=== PATIENT | female | born 1985 | race Caucasian/White ===

== ENCOUNTER 2018-07-23 06:53 | Day surgery (SDC) | payer OTHER, SELFPAY ==
--- NOTE | 2018-07-22 17:06 | PCM.HP.BLA ---
History and Physical Date of Admission: 07/23/18 Surgical History and Physical Molly Anderson, a 33 year old female 0 0 1 0 0, presents for Suction D and E on June at 8:30. -- Blighted Ovum; Threatened Miscarriage -- Denies any vaginal bleeding or cramping. 7 weeks gestation with blighted ovum. Molly presents here today for follow-up for ultrasound done today in our Office. 33 y.o. G 2 P 0 non-smoker with LMP of 05-22-18 and denies spotting/cramping thus far with history of a blighted ovum. Additional comments are: quant about 21,000 and no FHTs noted on u/s yesterday and day before; in hospital for [place] for 4 days at [place]. MEDICATIONS HISTORY: Patient is also takin. clindamycin HCl 150 mg capsule, three po qid 2. folic acid 1 mg tablet, One pill by mouth once a day ALLERGIES: No Known Allergies Infections - Chicken pox Illnesses - [place],Anxiety Accidents - None Hospitalizations - see surgery Review of Systems: GENERAL - Denies fever, or chills SKIN - Denies skin changes EYES - Denies visual changes EARS - Denies difficulty hearing NOSE - Denies nasal congestion or bleeding MOUTH - Denies sore throat or difficulty swallowing NECK - Denies pain or swelling RESPIRATORY - Denies shortness of breath or wheezing CARDIOVASCULAR - Denies palpitations or chest pain GASTROINTESTINAL - Denies nausea, vomiting, diarrhea, constipation GENITOURINARY - Denies dysuria, frequency of urination, incontinence of urine MUSCULOSKELETAL - Denies joint or muscle pain NEUROLOGICAL - Denies localized numbness or weakness PSYCHIATRIC - Denies depression or anxiety ENDOCRINE - Denies heat or cold intolerance, weight loss or gain HEMATO-IMMUNOLOGIC - Denies excesive bleeding with cuts SOCIAL HISTORY: Alcohol Use - socially Smoking - used to smoke but quit and 2017 Diet - no special diet Lifestyle - moderate stress lifestyle and Exercise - active Seat Belt Use - always 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 2010 Bilateral Breast Reduction PHYSICAL EXAM BP- 126/78 Sitting, Right arm, regular cuff Weight- 188.65100 lbs Height- 63 inch BMI:33.37 CONSTITUTIONAL - NAD, well nourished, and well developed SKIN - No rash, lesions, or ulcers HEENT - Normocephalic, PERRLA, EOMI NECK - No nodes, no nuchal rigidity and thyroid normal size and texture LYMPH NODES - Palpation of lymph nodes in neck and groins within normal limits LUNGS - CTA x2 without wheezes, crackles or rales CARDIAC - Regular rate and rhythm without rubs, murmurs, or gallops ABDOMEN - Without hepatosplenomegaly, distention, masses, rebound, or guarding; normal bowel sounds; no hernias EXTREMITIES - No edema or calf tenderness NEUROLOGICAL - Cranial nerves II-XII grossly intact PSYCHIATRIC - A and O to time, place, person, mood and affect ASSESSMENT/PLAN: 1. Threatened , Antepartum Condition Or Complication Blighted ovum and inevitable miscarriage. Discussed MC at length. Discussed options and wants to proceed with Suction D and E. Discussed RBAs and all questions answered.
--- NOTE | 2018-07-22 17:09 | HP.PCM_ITS ---
History and Physical Date of Admission: 07/23/18 Surgical History and Physical Molly Anderson, a 33 year old female 0 0 1 0 0, presents for Suction D and E on June at 8:30. -- Blighted Ovum; Threatened Miscarriage -- Denies any vaginal bleeding or cramping. 7 weeks gestation with blighted ovum. Molly presents here today for follow-up for ultrasound done today in our Office. 33 y.o. G 2 P 0 non-smoker with LMP of 05-22-18 and denies spotting/cramping thus far with history of a blighted ovum. Additional comments are: quant about 21,000 and no FHTs noted on u/s yesterday and day before; in hospital for [place] for 4 days at [place]. MEDICATIONS HISTORY: Patient is also takin. clindamycin HCl 150 mg capsule, three po qid 2. folic acid 1 mg tablet, One pill by mouth once a day ALLERGIES: No Known Allergies Infections - Chicken pox Illnesses - Day,Anxiety Accidents - None Hospitalizations - see surgery Review of Systems: GENERAL - Denies fever, or chills SKIN - Denies skin changes EYES - Denies visual changes EARS - Denies difficulty hearing NOSE - Denies nasal congestion or bleeding MOUTH - Denies sore throat or difficulty swallowing NECK - Denies pain or swelling RESPIRATORY - Denies shortness of breath or wheezing CARDIOVASCULAR - Denies palpitations or chest pain GASTROINTESTINAL - Denies nausea, vomiting, diarrhea, constipation GENITOURINARY - Denies dysuria, frequency of urination, incontinence of urine MUSCULOSKELETAL - Denies joint or muscle pain NEUROLOGICAL - Denies localized numbness or weakness PSYCHIATRIC - Denies depression or anxiety ENDOCRINE - Denies heat or cold intolerance, weight loss or gain HEMATO-IMMUNOLOGIC - Denies excesive bleeding with cuts SOCIAL HISTORY: Alcohol Use - socially Smoking - used to smoke but quit and 2017 Diet - no special diet Lifestyle - moderate stress lifestyle and Exercise - active Seat Belt Use - always 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 2010 Bilateral Breast Reduction PHYSICAL EXAM BP- 126/78 Sitting, Right arm, regular cuff Weight- 188.23363 lbs Height- 63 inch BMI:33.37 CONSTITUTIONAL - NAD, well nourished, and well developed SKIN - No rash, lesions, or ulcers HEENT - Normocephalic, PERRLA, EOMI NECK - No nodes, no nuchal rigidity and thyroid normal size and texture LYMPH NODES - Palpation of lymph nodes in neck and groins within normal limits LUNGS - CTA x2 without wheezes, crackles or rales CARDIAC - Regular rate and rhythm without rubs, murmurs, or gallops ABDOMEN - Without hepatosplenomegaly, distention, masses, rebound, or guarding; normal bowel sounds; no hernias EXTREMITIES - No edema or calf tenderness NEUROLOGICAL - Cranial nerves II-XII grossly intact PSYCHIATRIC - A and O to time, place, person, mood and affect ASSESSMENT/PLAN: 1. Threatened , Antepartum Condition Or Complication Blighted ovum and inevitable miscarriage. Discussed MC at length. Discussed options and wants to proceed with Suction D and E. Discussed RBAs and all questions answered.
[2018-07-23 07:23] VITALS: BP 113/58; PULSE 88; RESP 16; TEMP 37.6; O2SAT 99; BMI 32.8
[2018-07-23] MEDS: Lubricating Jelly 60 GM Tube 30 GM TOPICAL (08:24)
--- NOTE | 2018-07-23 08:30 | POC_PTH ---
PATIENT: FREDI LR LOC: [facility] [place] [facility] [place] U[place][id number] AGE/SX: 33/F ROOM: RE07/23/[address]: Dr. Murali Quintanilla MD : 1985 BED: DIS: 07/23/2018 SPEC #: [id number] RECD: 07/23/18 10:39 STATUS: CHELSEA REAntonietta #: [id number] NANCY: 07/23/18 08:[address]: Murali Quintanilla DEPT: SURGICAL PATHOLOGY RECD BY: William Aguilar ENTERED: 07/23/18 11:33 SP TYPE: PROD CONC OTHR DR: Margaret Castro, FIELD OPERATOR-C Tissues: Product of conception, NOS Procedures: Surgery Specimen Level IV HEADER OPERATION: Dilation and curettage, suction PRE-OP DIAGNOSIS: Blighted ovum and inevitable miscarriage TISSUE SUBMITTED: Products of conception MICROSCOPIC DIAGNOSIS Products of conception: [place], gestational endometrium and immature chorionic villi (products of conception). See comment. SJ:melissa 07/24/18 COMMENT A few of the villi show focal hydropic changes. Significant trophoblastic hyperplasia is not seen. Clinical correlation and appropriate follow up are necessary. MICROSCOPIC DESCRIPTION Slides are reviewed. GROSS DESCRIPTION Received in fixative is one container labeled with the patient's name and designated products of conception. The specimen consists of multiple pieces of timmons-pink soft tissue that in aggregate measure 6 x 5 x 1.5 cm. One of the pieces consist of a cystic structure that may represent gestational sac. No tissue is identified. Branch Office Administrator tissue is submitted in two cassettes. / FORTINO:melissa 07/23/18 TC:5 CPT:
--- NOTE | 2018-07-23 08:43 | PCM.OP.BLANK ---
Operative Report Date of Procedure: 07/23/18 Pre/Post-op: Incomplete Miscarriage, Blighted Ovum Surgeon: Murali Quintanilla MD, FACOG Anesthesia: Irina Riley CRNA; Keith Quintanilla MD Type of anesthesia: MAC Procedure: Suction Dilation and Evacuation Findings: 10 cm EM cavity with POC Indication: 33 Year patient with blighted ovum at 7-8 weeks gestation. Pt has been counseled re RBAs and all questions answered. Procedure: Pt taken to the OR where she was given IV sedation. The patient was prepped and draped in the usual sterile fashion. Anterior cervix grasped and cervix dilated to 8mm. An 8 mm suction curette was inserted into the cervix and all contents removed. Uterus was gently curetted and remaining tissue removed. Pt tolerated the procedure well and was taken to the recovery room in satisfactory condition. Sponge, instruments and needle counts were all correct. There were no apparent complications of the surgery. To Pathology: POC EBL Minimal.
--- NOTE | 2018-07-23 08:46 | DCINST_ITS ---
Discharge Diet: No Restrictions Discharge Activity: Return to Normal Activity, May Shower, May Take a Tub Bath May resume sexual activity in: 2 weeks Call your doctor if you observe: Fever of 101 or Higher, Inability to urinate, Inability to have a bowel movement, Using more than one pad per hour Allergies/Adverse Reactions: Allergies No Known Allergies Allergy (Verified 07/22/18 09:35) Medications to take at Discharge NK 07/22/18 Primary Care Physician: Margaret Castro NP-C [Primary Care Provider] - Test Results: Test results from this visit will be discussed in further detail at your follow- up appointment, if applicable. Please Follow Up With: Murali Quintanilla MD When: 2-3 weeks
[2018-07-23 09:15] VITALS: BP 107/65; BP 113/58; PULSE 87; RESP 16; TEMP 37; O2SAT 94
[2018-07-23 09:20] VITALS: BP 108/66; BP 113/58; PULSE 85; RESP 16; O2SAT 95
[2018-07-23 09:25] VITALS: BP 105/68; BP 113/58; PULSE 84; RESP 16; O2SAT 94
[2018-07-23 09:30] VITALS: BP 108/67; BP 113/58; PULSE 82; RESP 16; O2SAT 95
[2018-07-23 09:35] VITALS: BP 113/58; BP 113/68; PULSE 81; RESP 16; TEMP 36.8; O2SAT 95
== END 2018-07-23 10:48 | disposition home or self-care (01) ==
LOC: SDC 06:57 → AC 06:57
PROVIDERS: Family Provider Nurse Practitioner Family; PCP Nurse Practitioner Family; Referring Provider Obstetrics & Gynecology; Visit Provider Obstetrics & Gynecology
PROC: (CPT 59812; principal; 2018-07-23 08:15)
DX: O03.4 Incomplete spontaneous abortion without complication (principal); O02.0 Blighted ovum and nonhydatidiform mole; Z3A.01 Less than 8 weeks gestation of pregnancy; Z87.891 Personal history of nicotine dependence
CPT/HCPCS: 01965; 59812; 36415; 86850; 86900; 88305; J7120; J2405

== ENCOUNTER → 2018-11-23 16:05 | Outpatient (CLI) | payer OTHER, SELFPAY ==
[2018-11-23 16:55] LABS: Absolute Lymphocyte Count 2.59 X10^3/ul (0.83-4.51); Absolute Neutrophil Count 3.8 X10^3/uL (2.0-7.7); Basophil# 0.02 X10^3/uL; Basophil% 0.3 % (0-1); Eosinophil# 0.21 X10^3/uL; Eosinophils% 2.9 % (0-5); Hematocrit 38.5 % (37-47); Hemoglobin 12.7 g/dl (12.0-15.0); Lymphocyte # 2.59 X10^3/ul (4.0); Lymphocyte % 35.6 % (19-41); Mean Corpuscular Volume 93.9 fL (81-99); Mean Platelet Vol. 8.1 fl (6.2-12.0); Monocyte# 0.61 X10^3/uL; Monocyte% 8.4 % (0-10); Neutrophil # 3.84 X10^3/uL (2.7-7.7); Neutrophil % 52.7 % (47-70); Platelet Count 391 K/mm3 (150-450); RBC Distribution Width CV 13.2 % (11.6-14.6); RBC Distribution Width SD 45.2 fl (35.1-43.9); White Blood Count 7.3 K/mm3 (4.4-11.0)
[2018-11-23 17:06] LABS: POSITIVE COUNT NO; POSITIVE DIFFERENTIAL NO; POSITIVE MORPHOLOGY NO
[2018-11-23 17:09] LABS: Color, Urine Yellow (Yellow); Glucose, Dipstick Normal (Normal); Ketone-Dipstick Negative (Negative); Leukocyte Esterase-Dipstick Negative /ul (Negative); Nitrite-Dipstick Negative (Negative); Occult Blood-Urine 10 /ul (Negative); Protein-Dipstick Negative (Negative); Urine Bilirubin Dipstick Negative (Negative); Urine Clarity Clear (Clear); Urine Urobilinogen Normal (Normal)
[2018-11-23 17:18] LABS: Thyroid Stim Hormone (TSH) 1.41 uIU/mL (0.358-3.74)
[2018-11-23 18:01] LABS: HIV - WCH Non-Reactive (Nonreactive); Rubella IgG 32.2 IU/mL
[2018-11-23 18:09] LABS: Chlamydia Trachomatis by PCR Negative (Negative); Neisserai gonorrhoeae by PCR Negative (Negative); Probe Check PASS; Sample Adequacy Control PASS; Specimen Processing Control PASS
[2018-11-25 12:21] LABS: HEPATITIS B SURFACE AG Negative (Negative); Hep C Antibodies 0.2 s/co ratio (0.0-0.9)
[2018-11-25 17:12] LABS: HPV Reflexed? NOT INDICATED
[2018-11-27 03:11] LABS: Prenatal RPR NONREACTIVE (NONREACTIVE)
== END ==
PROVIDERS: Visit Provider Obstetrics & Gynecology
DX: Z12.4 Encounter for screening for malignant neoplasm of cervix (principal); Z11.3 Encounter for screening for infections with a predominantly sexual mode of transmission; Z34.81 Encounter for supervision of other normal pregnancy, first trimester
CPT/HCPCS: 36415; 81002; 84443; 85025; 86703; 86762; 86803; 87340; 87491; 87591; 87624; 88175; G0145

== ENCOUNTER → 2019-04-05 15:49 | Outpatient (CLI) | payer OTHER, SELFPAY ==
[2019-04-05 17:14] LABS: Hematocrit 34.2 % (37-47); Hemoglobin 11.4 g/dl (12.0-15.0); Mean Corp Hgb Conc 33.3 g/gl (32-36); Mean Corpuscular Hgb 31.7 pg (27.0-32.0); Mean Platelet Vol. 8.3 fl (6.2-12.0); Platelet Count 371 K/mm3 (150-450); RBC Distribution Width CV 13.1 % (11.6-14.6); RBC Distribution Width SD 45.4 fl (35.1-43.9); White Blood Count 10.7 K/mm3 (4.4-11.0)
[2019-04-05 17:15] LABS: Scan Indicated on CBC? Y/N NO
[2019-04-05 17:20] LABS: Glucose Challenge Gest 1H 50g 139 mg/dL (70-140)
== END ==
PROVIDERS: Visit Provider Obstetrics & Gynecology
DX: Z34.83 Encounter for supervision of other normal pregnancy, third trimester (principal)
CPT/HCPCS: 36415; 82950; 85027

== ENCOUNTER → 2019-06-03 16:47 | Outpatient (CLI) | payer OTHER, SELFPAY | PROVIDERS: Visit Provider Obstetrics & Gynecology | DX: Z36.85 Encounter for antenatal screening for Streptococcus B (principal) | CPT/HCPCS: 87081 ==

== ENCOUNTER 2019-07-02 06:50 | Inpatient (IN) | payer OTHER, SELFPAY ==
[2019-07-02] MEDS: Lactated Ringers 1,000 ML 50 ML IV (07:40)
[2019-07-02 07:53] VITALS: BMI 37.9
[2019-07-02 07:56] LABS: Absolute Neutrophil Count 7.8 X10^3/uL (2.0-7.7); Basophil# 0.02 X10^3/uL; Basophil% 0.2 % (0-1); Eosinophil# 0.16 X10^3/uL; Eosinophils% 1.4 % (0-5); Hematocrit 38.7 % (37-47); Hemoglobin 12.8 g/dL (12.0-15.0); Lymphocyte % 22.8 % (19-41); Mean Corp Hgb Conc 33.1 g/dL (32-36); Mean Corpuscular Hgb 31.1 pg (27.0-32.0); Mean Corpuscular Volume 93.9 fL (81-99); Mean Platelet Vol. 8.4 fl (6.2-12.0); Monocyte# 0.79 X10^3/uL; Monocyte% 6.9 % (0-10); NRBC Flagged by Analyzer 0 % (0-5); Neutrophil % 68.3 % (47-70); Platelet Count 396 K/mm3 (150-450); RBC Distribution Width CV 12.9 % (11.6-14.6); RBC Distribution Width SD 44.7 fl (35.1-43.9); Red Blood Count 4.12 M/mm3 (4.2-5.4); White Blood Count 11.4 K/mm3 (4.4-11.0)
[2019-07-02] MEDS: miSOPROStol 25 MCG TABLET PO ×2 (09:07→13:16)
--- NOTE | 2019-07-02 11:06 | HP.PCM_ITS ---
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 On 07/01/2019 JAMIA was noted to be 3.8cm. with MVP=3.2cm, and patient was scheduled for medically indicated IOL. She is GBS negative; is anticipated to be cared for in the normal nursery. A plan is in place for to be seen by pediatric neurology and also to have an echocardiogram at 1-2 weeks of age. ACOG ANTEPARTUM RECORD - HISTORY AND PHYSICAL (07/02/2019) Name: MOLLY LR OB Physician: CAROL Langley's Physician: JOVANY He................................................................... : 1985 Age: 34 Address: [address] [place] [id number] Phone: (h) [phone] ([phone] Insurance Carrier: [facility] [id number] Emergency Contact: LINDA LR/ [phone] ...................................................................... Final JOSE: 06/26/19 By Ultrasound: PARITY: (G-Total Pregnancies P-Fullterm,Premature,Induced AB,Spont AB, Ectopics, Multiple,Living) JOSE CONFIRMATION: By LMP: 09/19/18 Final JOSE: 06/26/19 BLOOD TYPE: AFP: 1 HR PG: GBS: Original Ordering Provider: Murali Quintanilla Comments: VAGINAL/RECTAL DAGMAR Culture Group B Beta Streptococcus is not isolated. Rublla titer (>10 immune)-- Hepatatis B collins AG-- CULTURES:-- OB PROBLEM LIST: Declines MSAFP, CF Nephew with Level II Autism Placenta: Posterior, velamentous cord insert and 0.7 cm from edge--- check u/s for growth 28-32 wks and NST weekly starting 36 wks Unilateral ventriculomegaly per MFM; pt declined amnio; avoid operative vaginal delivery; head u/s wtihin 1 month of delivery per peds Vilamentous insertion; slightly dilated ventricles--refer MFM ALLERGIES: No Known Allergies MEDICATIONS: 28 mg iron-800 mcg tablet One pill by mouth once a day SOCIAL HISTORY: Smoking - used to smoke but quit and 2017 Alcohol Use - socially Diet - no special diet Lifestyle - moderate stress lifestyle and Exercise - active 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 HISTORY DEL DATE GEST LAB WT LB WT OZ TYPE ANES LABOR TX Apr 15 7 0 0 0 Sab Epidural No 25 Jul 16 9 0 0 0 Sab Epidural No ANTEPARTUM FLOW CHART VISIT GE RTC FU F F AZ U U DATE WK MD WKS HT PN HR M SS BP ED WT AZ GL D EF ST __ ____ ___ __ __ ___ __ __ __ ___ __ __ __ ___ __ 03 Jun JMW 6 38 V + + 128/84 sl 214 - - 2+ 50 -2 30 May 40 ELB 1 - V + + 124/80 sl 214 tr - 1 50 hi 23 May 39 JMW 1 38 V + + 130/76 sl 213 tr 2+ S 16 May 38 JMW 1 38 V U+ + 124/76 sl 211 - - 1 50 -3 09 Sep 37 ELB 1 37 V + + 112/78 sl 210 - 1+ 05 Sep 36 JMW 1 36 V + + 124/78 sl 211 - tr 1 50 -2 Apr 35 JMW 1 35 + + 134/86 sl 206 tr - 12 Apr ELB 2 33 - + + 130/76 sl 206 tr - Apr 28 JMW 2 31 + + 138/80 sl 202 tr - 08 Apr 25 JMW 3 28 + + 138/90 0 198 - - 03 Mar 21 JMW 4 23 + + 136/86 sl 193 - - February 14 ELB 4 - B U+ + 132/82 0 188 - - Dec 09 JMW 6 + O 118/68 0 183 tr - ANTEPARTUM NOTE(S): Jul 01 2019: NST. PNV. Feels good., Induce, Oligo 3.8 cm Jun 28 2019: Jun 21 2019: Good FM Jun 14 2019: NST Today,Good FM, Feeling Well Jun 07 2019: Ate [employer] for lunch just before NST Jun 03 2019: Feels well. NST today. May 24 2019: Good FM,Feeling Well May 10 2019: reviewed FM, PTL Apr 26 2019: Sono Today,Good FM,Feeling Well, refer MFM Apr 05 2019: feeling well. Glucola drawn. Mar 01 2019: glucola inst provided and reviewed, patient doing well February 01 2019: Sono Today,Good FM, Feeling Well Dec 22 2018: NOB & PNV, Declines AFP COMPREHENSIVE ANTEPARTUM NOTE(S): Jul 01 2019: Molly is here for her NST at 40 w 5 d. She states that she is feeling well, and reports good FM. Denies spotting/leaking fluid, and states that she feels only BH ctx's. Slight edema noted below knees. NST reactive, read per Dr. Quintanilla. AW Jun 28 2019: Molly is here for visit after NST at 40.2 w gest. Feeling well. Ready for induction. Occ contr only but more BH. Glucose negative today. Baby active. Tops of feet puffy. Lower legs only slight edema. DR. Jun 21 2019: Molly is here for NST and visit. Ready for labor and baby. Occ contr at home. Baby active. Sl edema lower legs today but reports more at times. Urine glucose 2+. Lunch at 1:15 p was [employer] beef/cheddar sandwich, gurpreet sticks and 1/2 of orange pop. Office Childbirth Class taken. DR. Jun 14 2019: Feeling well; reports active FM; denies UCs, VB, LOF; Reactive NST; VE per patient request /-3, soft, posterior; discussed warning signs, s/s Labor, when to call/come in; RTO 1 week for PNV - KVW Jun 11 2019: H taken to OB. tkg Jun 07 2019: Molly is here at 37 w 2 d for her NST. She states that she feels pretty good. Reports good FM. Denies spotting/leaking fluid. Feels irregular BH ctx's. Slight edema noted below knees. NST reactive, read per Dr. Cross. AW Jun 03 2019: Molly is here for her NST for Velamentous cord insertion at 36 w 5 d. EEFM/NST explained. She states that she is feeling well. Good FM reported. She denies spotting/cramping. Slight edema noted below knees. NST reactive, read per Dr. Quintanilla. AW May 24 2019: Feeling well; reports active FM; VB, LOF, KAN, RUQ pain; appointment pending with MFM for cardiac US; discussed warning signs, s/s PTL; RTO 1 week for PNV, NST May 10 2019: Here for visit. Doing well, no complaints. Plans repeat u/s this with MFM. Reviewed FM, PTL. LMT May 10 2019: MFM appt scheduled for to f/u on ventricles and placenta. EB Dec 22 2018: Molly presents here today for NOB and PNV. 33 y.o. G 3 P 0 (AB 1, Blighted Ovum 1) previous smoker (quit in 2016) and reports continues with periodic nausea and fatigue. 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 Plans to deliver at [facility] with Dr. Navarro as Philosophy And Religion Instructor and undecided regarding an epidural. Reports her nephew has Level II Autism and denied other genetic or concerns family history. Reviewed good nutrition and healthy snacks with ideal weight gain of 20-25 lbs(dietary handout given) and encouraged good hydration with 1-2 gallons of water/fluids daily with benefits of same given as well as she plans to breastfeed. Detailed review of major body changes in breasts, digestion and abdomen. Discussed common discomforts in with helpful hints for each with handout given( diarrhea, constipation, hemorrhoids, urinary frequency, low back pains, round ligament pains, varicose veins, difficulty breathing, headaches, fatigue, insomnia, heartburn, numbness and tingling in fingers/toes, intercourse during , Donaldo Muñiz and excess production of vaginal discharge). Reviewed emotional changes from first to third trimester with ways to relax. No house cats and had chickenpox as a child. Genetic screening form filled out and declines MSAFP, CF testing with consent form signed. labs were drawn at last visit and reviewed same today. Birthing Classes encouraged. JAZLYN Nov 23 2018: PT is a 33 yo female, G-3 P-0 here today for her missed menses appt. PT LMP was 09/19/2018 giving her an EDC of 06/26/2019 and making her approx. 9.2 wks GA today. PT denies any bleeding, spotting, or cramping. PT is taking a PNV. PT is anxious due to previous two miscarriages and would like to have an ultrasound today if possible. New paperwork given to pt. PT to have pap and GC/CT today. dg Nov 23 2019: ok Aug 04 2018: Molly presents here today for 2 week post-op check from Suction D and E on 07-23-18 with JW at [facility]. 33 y.o. 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 Medication list up- dated. JAZLYN Aug 04 2018: Doing well. Return 6 months for annual exam. Jul 20 2018: Molly presents here today for follow-up for ultrasound done today in our Office. 33 y.o. G 2 P 0 non-smoker with LMP of 05-22-18 and denies spotting/cramping thus far with history of a blighted ovum. Medication list up-dated. JAZLYN Jul 20 2018: ok Jul 13 2018: Molly presents here today as follow-up from being admitted in [place] from 07-10-18 to 07-12-18 for [place] and was told possible Blighted Ovum. 33 y.o. G 2 P 0 previous smoker (quit in 08/2017) with history of regular menses and LMP of 05-23-18. Had blood work and Ultrasound over the week-end with both copied and attached. Reports feeling better and denies bleeding/cramping thus far in . Medications listed. JAZLYN Jul 13 2018: Denies any vaginal bleeding or cramping. REVIEW OF SYSTEMS: GENERAL - Denies fever, or chills SKIN - Denies rash, new skin lesions, or change in moles EYES - Denies blurred vision, or change in visual acuity EARS - Denies ear pain, or difficulty hearing NOSE - Denies nasal congestion, discharge, or bleeding MOUTH - Denies sore throat, or difficulty swallowing NECK - Denies pain or swelling RESPIRATORY - Denies shortness of breath, cough, wheezing CARDIOVASCULAR - Denies palpitations, chest pain, orthopnea, PND, peripheral edema, syncope or claudication GASTROINTESTINAL - Denies nausea, vomiting, diarrhea, constipation, Denies abdominal pain, melena and or bright red blood GENITOURINARY - Denies dysuria, frequency of urination, urgency, or hesitancy MUSCULOSKELETAL - Denies joint or muscle pain, or back pain NEUROLOGICAL - Denies localized numbness, weakness, or tingling PSYCHIATRIC - Denies depression, anxiety, substance abuse or suicide attempts ENDOCRINE - Denies heat or cold intolerance, weight loss or gain, increasing thirst HEMATO-IMMUNOLOGIC - Denies easy bruising, bleeding, oral ulcerations or recurrent infections GENETICS SCREENING: Age 35+ years: No Thalassemia: No Neural Tube Defect: No Down Syndrome: No JOSE LUIS-SACHS: No Sickle Cell Disease: No Hemophilia: No Musc. Dystrophy: No Cystic Fibrosis: No-declines screening Edwardo Chorea: No Mental Retardation: No Fragile X: No Other genetic: No Other defects: No SABs/still births: No Drugs since LMP: No INFECTION HISTORY: High risk AIDS: No High risk Hepatitis: No Exposed to TB: No Exposed to Herpes: No Rash/viral illness since LMP: No History of STD: No MENSTRUAL HISTORY: *Menses Amount/Duration: normal amount, spottingMenses Regularity: RegularFrequency: monthlyMenarche (Age Onset): 14* PAST SUMMARY: PARITY: 1. Total Pregnancies............ 3 2. Full Term Pregnancies........ 0 3. Premature.................... 0 4. Abortions - Induced.......... 0 5. Abortions - Spontaneous...... 2 6. Ectopics..................... 0 7. Multiple Births.............. 0 8. Living Children.............. 0 PAST #1: Date of :.................. 04/04/18 Gestation Weeks:................ 7 Length of labor(hours):......... 0 Sex:............................ Weight-lbs:............... 0 Weight-oz:................ 0 Type of Delivery:............... Sab Type of Anesthesia:............. Epidural Place of Delivery:.............. [place] Treatment of Labor?:.... No Comment: PAST #2: Date of :.................. 07/23/18 Gestation Weeks:................ 9 Length of labor(hours):......... 0 Sex:............................ Weight-lbs:............... 0 Weight-oz:................ 0 Type of Delivery:............... Sab Type of Anesthesia:............. Epidural Place of Delivery:.............. [place] Treatment of Labor?:.... 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 Yajaira Marquez Misoprostol cervical ripening followed by pitocin IOL Continuous EFM Anticipate vaginal delivery
[2019-07-02] MEDS: Oxytocin 30 units/NS 500 ml 30 UNITS/500 ML IV.SOLN IV (17:16)
--- NOTE | 2019-07-02 17:30 | PCM.PN.BLA ---
Progress Note LABOR PROGRESS NOTE Molly reports mild contractions. Denies headache, vision changes, shortness of breath or RUQP. She feels well. BP 144/73, 154/87 P 99 VSS GEN - NAD, AAO x 3 FHR 145, moderate variability, + accelerations, no decelerations TOCO 2-3/10 min SVE 2-3/40/-1 per last RN exam by Walter Thacker. A/P: 34yo @ 40 6/7wga, IOL, s/p cytotec x 2, Cat I FHR -Continue to monitor BPs. Will send preeclamptic labs if elevation persists. -Start pitocin -Maternal and statuses reassuring
[2019-07-02 22:05] LABS: Hematocrit 38.1 % (37-47); Hemoglobin 12.7 g/dL (12.0-15.0); Mean Corp Hgb Conc 33.3 g/dL (32-36); Mean Corpuscular Hgb 31.8 pg (27.0-32.0); Mean Corpuscular Volume 95.3 fL (81-99); Mean Platelet Vol. 8.3 fl (6.2-12.0); Platelet Count 374 K/mm3 (150-450); RBC Distribution Width SD 45.3 fl (35.1-43.9); White Blood Count 11.7 K/mm3 (4.4-11.0)
[2019-07-02 22:31] LABS: ALB/GLOB Ratio 0.6 RATIO (0.9-2.4); AST(SGOT) 11 U/L (15-37); Alanine Aminotransfer ALT/SGPT 16 U/L (13-56); Albumin, Serum 2.4 g/dL (3.2-5.0); Alkaline Phosphatase 95 U/L (45-117); Anion Gap 9 (5-15); BUN 10 mg/dL (7-18); BUN/Creat Ratio 16.3 RATIO (10-20); Calcium,Total 8.7 mg/dL (8.5-10.1); Chloride 107 mmol/L (98-107); Creatinine, Serum 0.61 mg/dL (0.55-1.02); EST Glomerular Filtration Rate 120 mL/min (>60); Est Glom Filt Rate - Afr Amer 145 mL/min (>60); Estimated Creatinine Clearance 109.52 ml/min; Glucose 79 mg/dL (74-106); LDH 132 U/L (84-246); Protein, Total 6.4 g/dL (6.4-8.2); Sodium Level 138 mmol/L (136-145); Uric Acid 3.3 mg/dL (2.6-6.0)
[2019-07-02] MEDS: Lactated Ringers 500 ML 999 ML IV (22:36)
[2019-07-02] MEDS: fentaNYL-bupivacaine (epidural) 100 ML BAG EPIDURAL (23:59)
--- NOTE | 2019-07-03 00:27 | PN_ITS ---
Progress Note LABOR PROGRESS NOTE Comfortable with epidural. No complaints. AVSS GEN - NAD, AAO x 3 FHR 130, moderate variability, + accelerations, no decelerations TOCO 5/10 min SVE deferred Labs & Testing WBC 11.7 K/mm3 (4.4-11.0) H 07/02/19 21:40 RBC 4.00 M/mm3 (4.2-5.4) L 07/02/19 21:40 Hgb 12.7 g/dL (12.0-15.0) 07/02/19 21:40 Hct 38.1 % (37-47) 07/02/19 21:40 MCV 95.3 fL (81-99) 07/02/19 21:40 MCH 31.8 pg (27.0-32.0) 07/02/19 21:40 MCHC 33.3 g/dL (32-36) 07/02/19 21:40 RDW Std Deviation 45.3 fl (35.1-43.9) H 07/02/19 21:40 RDW Coeff of Ty 13.0 % (11.6-14.6) 07/02/19 21:40 Plt Count 374 K/mm3 (150-450) 07/02/19 21:40 MPV 8.3 fl (6.2-12.0) 07/02/19 21:40 Immature Gran % (Auto) 0.400 % (0.0-0.9) 07/02/19 07:40 Neut % (Auto) 68.3 % (47-70) 07/02/19 07:40 Lymph % (Auto) 22.8 % (19-41) 07/02/19 07:40 Shackelford % (Auto) 6.9 % (0-10) 07/02/19 07:40 Eos % (Auto) 1.4 % (0-5) 07/02/19 07:40 Baso % (Auto) 0.2 % (0-1) 07/02/19 07:40 Absolute Neuts (auto) 7.8 X10^3/uL (2.0-7.7) H 07/02/19 07:40 Absolute Lymphs (auto) 2.60 X10^3/uL (0.83-4.51) 07/02/19 07:40 Nucleated RBC % 0 % (0-5) 07/02/19 07:40 Sodium 138 mmol/L (136-145) 07/02/19 21:40 Potassium 4.0 mmol/L (3.5-5.1) 07/02/19 21:40 Chloride 107 mmol/L (98-107) 07/02/19 21:40 Carbon Dioxide 22.0 mmol/L (21.0-32.0) 07/02/19 21:40 Anion Gap 9 (5-15) 07/02/19 21:40 BUN 10 mg/dL (7-18) 07/02/19 21:40 Creatinine 0.61 mg/dL (0.55-1.02) 07/02/19 21:40 Estim Creat Clear Calc 109.52 ml/min 07/02/19 21:40 Est GFR (MDRD) Af Amer 145 mL/min (>60) 07/02/19 21:40 Est GFR (MDRD) Non-Af 120 mL/min (>60) 07/02/19 21:40 BUN/Creatinine Ratio 16.3 RATIO (10-20) 07/02/19 21:40 Glucose 79 mg/dL (74-106) 07/02/19 21:40 Uric Acid 3.3 mg/dL (2.6-6.0) 07/02/19 21:40 Calcium 8.7 mg/dL (8.5-10.1) 07/02/19 21:40 Total Bilirubin 0.20 mg/dL (0.20-1.00) 07/02/19 21:40 AST 11 U/L (15-37) L 07/02/19 21:40 ALT 16 U/L (13-56) 07/02/19 21:40 Alkaline Phosphatase 95 U/L (45-117) 07/02/19 21:40 Lactate Dehydrogenase 132 U/L (84-246) 07/02/19 21:40 Total Protein 6.4 g/dL (6.4-8.2) 07/02/19 21:40 Albumin 2.4 g/dL (3.2-5.0) L 07/02/19 21:40 Globulin 4.0 g/dL (2.2-4.2) 07/02/19 21:40 Albumin/Globulin Ratio 0.6 RATIO (0.9-2.4) L 07/02/19 21:40 Blood Type A POSITIVE 07/02/19 07:40 Antibody Screen NEGATIVE 07/02/19 07:40 A/P: 34yo @ 41wga, IOL with likely gestational HTN, Cat I FHR -Preeclamptic labs negative -Maternal and statuses reassuring
[2019-07-03] MEDS: Lactated Ringers 1,000 ML 200 ML IV ×3 (02:05→12:50)
[2019-07-03] MEDS: fentaNYL-bupivacaine (epidural) 100 ML BAG EPIDURAL ×3 (04:06→14:33)
[2019-07-03] MEDS: Mag Hydrox/Al Hydrox/Simeth 30 ML UDC PO (04:35)
--- NOTE | 2019-07-03 07:11 | PCM.PN.BLA ---
Progress Note LABOR PROGRESS NOTE Comfortable. Was able to sleep last night. Denies complaints. AVSS, BP 125-131/57-76 FHR 140, minimal variability, + 10 x 10 accelerations, + variable deceleration TOCO 4/10 min SVE 7/75/-1 34yo @ 41wga, IOL with Cat II FHR -Continue pitocin as tolerated by mother and baby -Maternal and statuses reassuring
[2019-07-03] MEDS: 0.9% Saline Lock 10 ML Syringe IV ×2 (07:45→21:40)
--- NOTE | 2019-07-03 13:21 | PCM.PN.BLA ---
Progress Note LABOR PROGRESS NOTE No complaints. AVSS GEN - NAD, AAO x 3 FHR 150, moderate variability, no accelerations, no decelerations TOCO 4/10 min SVE 9/90/-1 (most of cervix at maternal left), CEPHALIC A/P: 34yo @ 41wga, IOL, Cat I FHR -Patient repositioned, will continue pitocin as tolerated by mother and fetus -Maternal and statuses reassuring
[2019-07-03] MEDS: Oxytocin 30 units/NS 500 ml 30 UNITS/500 ML IV.SOLN 334 UNITS IV (17:15)
[2019-07-03] MEDS: Methylergonovine 0.2 MG/ML Ampul IM (17:50)
[2019-07-03] MEDS: Acetaminophen 500 MG Tablet 1000 MG PO (19:28)
--- NOTE | 2019-07-03 20:12 | PCM.OPRPT ---
Problem List (1) 41 weeks gestation of Status: Acute (2) Meconium in amniotic fluid Status: Acute (3) (spontaneous vaginal delivery) Status: Acute (4) Maternal fever during labor Status: Acute (5) Gestational hypertension Status: Acute Qualifiers: Trimester: third trimester Qualified Code(s): O13.3 - Gestational [-induced] hypertension without significant proteinuria, third trimester Vaginal Delivery Maternal Presentation: Medically Indicated Induction Method of Induction: Pitocin, Amniotomy, Cytotec Medical Reason for Induction: - - Late term Amniotic Membrane Rupture Type: Artificial Rupture of Membrane time: 2100 07/02/19 Amniotic Fluid Description: Thick meconium Final JOSE: 06/26/19 Final JOSE Source: US <20 weeks Gestational age: 41 Weeks and 0 Days [place] doctor who attended delivery (if requested by OB): Cherise Hedrick Date of Procedure: 07/03/19 Pre-Operative Diagnosis: 41wga, gestational hypertension, maternal fever Post-Operative Diagnosis: 41wga, gestational hypertension, maternal fever Surgery/ Procedure Performed: Spontaneous Vaginal Delivery Anesthesiologist: Matty Mars Type of Anesthesia: Epidural Description of Procedure: Patient was FD/+4 station on my arrival. She pushed to deliver a male fetus through thick meconium. The mouth was suctioned at the perineum. The was placed on the maternal abdomen, noted to have poor tone and no significant respiratory effort. The cord was doubly clamped and cut. The was further attended by the nursery personnel and Pediatric Hospitalist. Cord gases were obtained. The placenta was manually extracted after more than 30 minutes . The placenta was extracted and appeared intact on inspection. Intrauterine exam was performed with retrieval of of clots. The uterus remained atonic without hemorrhage, thus vigorous bimanual uterine massage was performed with improvement and IM Methergine was administered. A vaginal laceration was repaired with 3-0 Vicryl Rapide. There was excellent hemostasis. Presentation: Vertex Placental Delivery Description: Spontaneous Placenta Disposition: Sent to Pathology Cord Vessel Description: 3 Vessels Nuchal Cord Compression: Without compression Cord Gases drawn per routine: ABG, VBG Cord Entanglement: None Drain: Sarmiento to straight drain Estimated Blood Loss: 400 Infant A gender: Male (1 minute): 4 (5 minute): 7 - 8 at 10 minutes Episiotomy Description: None Laceration: Midline, Vaginal Extension/lac, 1st degree Medications given after delivery: IV Pitocin, IM Methergin Complications: None
[2019-07-03 20:28] VITALS: BP 128/71; PULSE 110; RESP 18; TEMP 36.9; O2SAT 98
--- NOTE | 2019-07-03 20:45 | NURSING ---
patient pumping. educated on duration, settings, breast care. denies further questions at this time
--- NOTE | 2019-07-03 22:02 | NURSING ---
roberto remains in place d/t perineal swelling and pt unable to get out of bed on own, right side weak/numb
[2019-07-03 23:09] VITALS: BP 131/72; PULSE 91; RESP 18; TEMP 36.5
[2019-07-04] MEDS: Ibuprofen 600 MG Tablet PO ×3 (03:22→22:53)
[2019-07-04 03:30] VITALS: BP 118/78; PULSE 100; RESP 18; TEMP 36.9
[2019-07-04 09:45] VITALS: BP 121/80; PULSE 103; RESP 16; TEMP 36.8; O2SAT 100
[2019-07-04] MEDS: Prenatal Vits Tablet 1 TABLET PO (09:50)
--- NOTE | 2019-07-04 10:16 | PCM.PN.OB ---
Patient Problems: Active and Suspected Problems 41 weeks gestation of (Acute) Meconium in amniotic fluid (Acute) (spontaneous vaginal delivery) (Acute) Maternal fever during labor (Acute) Gestational hypertension (Acute) Subjective: No issues overnight. Denies headache, vision changes, shortness of breath or abdominal pain. Has mild intermittent cramping. No voiding difficulties or heavy lochia. She is pumping, . was transferred to the special care nursery overnight for hypoglycemia. Objective: AVSS - Physical Exam General: Alert, Oriented x3, Cooperative, No apparent distress HEENT: Atraumatic, Normocephalic Lungs: Clear to auscultation, Normal air movement Cardiovascular: Regular rate, Regular Rhythm, Normal S1, Normal S2 Abdomen: Soft, Non Tender, Non-Distended, - - Fundus firm and nontender Extremities: No edema, No Calf Tenderness Neurological: Neuro grossly intact Psych/Mental Status: Normal Affect, Appropriate, Alert and oriented to time, place, person, mood and affect Vital Signs Temp Pulse Resp BP Pulse Ox 98.3 F 103 H 16 121/80 H 100 07/04/19 09:45 07/04/19 09:45 07/04/19 09:45 07/04/19 09:45 07/04/19 09:45 Oxygen Delivery Method Room Air Weight: 97.1 kg Body Mass Index (BMI) 37.9 Intake and Output for Last 24 Hours 07/02/19 07/03/19 07/04/19 23:59 23:59 23:59 Intake Total 1645.07 / 1645.07 4926.57 / 4926.57 Output Total 2350 / 2350 Balance 1645.07 / 1645.07 2576.57 / 2576.57 Medical Necessity - Tobacco Use Smoking Status: Former smoker Assessment/Plan All Active Problems 41 weeks gestation of (Acute) Meconium in amniotic fluid (Acute) (spontaneous vaginal delivery) (Acute) Maternal fever during labor (Acute) Gestational hypertension (Acute) Mom's Problem List Problem Status Onset Code 41 weeks gestation of Acute Z3A.41 Meconium in amniotic fluid Acute P96.83 (spontaneous vaginal delivery) Acute O80 Maternal fever during labor Acute O75.2 Gestational hypertension Acute O13.9 Labs Blood Type: A RH: POSITIVE RPR/VDRL/Syphilis Nonreactive Rubella status Immune HbSAg Negative Date Done: 11/23/18 Chlamydia Negative Gonorrhea Negative HIV/AIDS Non-Reactive Group B Strep: Negative A/P: 34yo PPD#1 s/p doing well. -Rh positive, Rubella immune -Routine care -/pumping
--- NOTE | 2019-07-04 10:21 | DCINST_ITS ---
Discharge Diet: No Restrictions Discharge Activity: Return to Normal Activity, May Shower, May Take a Tub Bath May resume sexual activity in: 6 weeks Lifting Restrictions: 10-20 lb Additional Instructions: If you experience any of the following, contact your healthcare provider. * Bleeding that soaks a pad every hour for 2 hours * Fever 100.4 or higher * Unrelieved incision or abdominal pain * Swelling, redness, discharge or bleeding from your incision or episiotomy site * Your incision begins to separate * Problems urinating (including inability to urinate or burning while urinating). * Visual changes * Severe headache * Flu-like symptoms * Pain or redness in one of both of your breasts * Pain, warmth, tenderness or swelling in your legs, especially the calf area * Frequent nausea and vomiting * Symptoms of depression or anxiety If you experience any of the following, call 911 or go to the nearest Emergency Room. * Chest pain * Problems breathing * Seizure activity * Partial or complete paralysis of a body part, slurred speech, weakness or drooping of the face, or a sudden inability to walk or hold your balance Allergies/Adverse Reactions: Allergies No Known Allergies Allergy (Verified 07/02/19 07:24) Medications to take at Discharge RX: Vits [Prenatabs FA ] 1 tab PO DAILY 07/02/19 RX: Ibuprofen [Motrin] 600 mg PO Q8H PRN #30 tab 07/04/19 The following prescriptions were given: RX: Ibuprofen [Motrin] 600 mg PO Q8H PRN #30 tab PRN Reason: Pain Score 1-10/10 Transmission Status: Pending to [id number] Please Follow Up With: Murali Quintanilla MD - BP check When: 1-2 weeks Please Follow Up With: Murali Quintanilla MD - visit When: 6 weeks Primary Care Physician: Care Physician,No Primary [Primary Care Provider] - Test Results: Test results from this visit will be discussed in further detail at your follow- up appointment, if applicable.
--- NOTE | 2019-07-04 10:21 | PCM.DCVAG ---
Discharge Diet: No Restrictions Discharge Activity: Return to Normal Activity, May Shower, May Take a Tub Bath May resume sexual activity in: 6 weeks Lifting Restrictions: 10-20 lb Additional Instructions: If you experience any of the following, contact your healthcare provider. Bleeding that soaks a pad every hour for 2 hours Fever 100.4 or higher Unrelieved incision or abdominal pain Swelling, redness, discharge or bleeding from your incision or episiotomy site Your incision begins to separate Problems urinating (including inability to urinate or burning while urinating). Visual changes Severe headache Flu-like symptoms Pain or redness in one of both of your breasts Pain, warmth, tenderness or swelling in your legs, especially the calf area Frequent nausea and vomiting Symptoms of depression or anxiety If you experience any of the following, call 911 or go to the nearest Emergency Room. Chest pain Problems breathing Seizure activity Partial or complete paralysis of a body part, slurred speech, weakness or drooping of the face, or a sudden inability to walk or hold your balance Allergies/Adverse Reactions: Allergies No Known Allergies Allergy (Verified 07/02/19 07:24) Medications to take at Discharge RX: Vits [Prenatabs FA ] 1 tab PO DAILY 07/02/19 RX: Ibuprofen [Motrin] 600 mg PO Q8H PRN #30 tab 07/04/19 The following prescriptions were given: RX: Ibuprofen [Motrin] 600 mg PO Q8H PRN #30 tab PRN Reason: Pain Score 1-10/10 Transmission Status: Pending to [id number] Please Follow Up With: Murali Quintanilla MD - BP check When: 1-2 weeks Please Follow Up With: Murali Quintanilla MD - visit When: 6 weeks Primary Care Physician: Care Physician,No Primary [Primary Care Provider] - Test Results: Test results from this visit will be discussed in further detail at your follow-up appointment, if applicable.
[2019-07-04 13:45] VITALS: BP 130/84; PULSE 98; TEMP 36.7
[2019-07-04 16:43] VITALS: BP 132/85; PULSE 104; RESP 16; TEMP 36.7
[2019-07-04 20:00] VITALS: BP 139/81; PULSE 114; RESP 18; TEMP 37.1; O2SAT 100
[2019-07-04] MEDS: Senna/Docusate Sodium 1 Tablet PO (20:17)
--- NOTE | 2019-07-04 20:59 | NURSING ---
Patient denies shortness of breath. Bleeding WNL. Patient denies headache, visual disturbances, and epigastric pain.
[2019-07-05 03:04] VITALS: BP 139/76; PULSE 89; RESP 18; TEMP 36.2
[2019-07-05] MEDS: Ibuprofen 600 MG Tablet PO ×2 (06:01→18:19)
--- NOTE | 2019-07-05 07:44 | PCM.PN.OB ---
Patient Problems: Active and Suspected Problems 41 weeks gestation of (Acute) Meconium in amniotic fluid (Acute) (spontaneous vaginal delivery) (Acute) Maternal fever during labor (Acute) Gestational hypertension (Acute) Subjective: No issues overnight. Feels well. Denies heavy lochia. Objective: AVSS - Physical Exam General: Alert, Oriented x3, Cooperative, No apparent distress HEENT: Atraumatic, Normocephalic Lungs: Normal air movement Cardiovascular: Regular rate, Regular Rhythm, Normal S1, Normal S2 Abdomen: Soft, Non Tender, Non-Distended, - - fundus firm and nontender Extremities: No Calf Tenderness, - - trace LE edema Neurological: Neuro grossly intact Psych/Mental Status: Normal Affect, Appropriate, Alert and oriented to time, place, person, mood and affect Vital Signs Temp Pulse Resp BP Pulse Ox 97.2 F L 89 18 139/76 H 100 07/05/19 03:04 07/05/19 03:04 07/05/19 03:04 07/05/19 03:04 07/04/19 20:00 Oxygen Delivery Method Room Air Weight: 97.1 kg Body Mass Index (BMI) 37.9 Intake and Output for Last 24 Hours 07/03/19 07/04/19 07/05/19 23:59 23:59 23:59 Intake Total 4926.57 / 4926.57 Output Total 2350 / 2350 250 / 250 Balance 2576.57 / 2576.57 -250 / -250 Medical Necessity - Tobacco Use Smoking Status: Former smoker Assessment/Plan All Active Problems 41 weeks gestation of (Acute) Meconium in amniotic fluid (Acute) (spontaneous vaginal delivery) (Acute) Maternal fever during labor (Acute) Gestational hypertension (Acute) Mom's Problem List Problem Status Onset Code 41 weeks gestation of Acute Z3A.41 Meconium in amniotic fluid Acute P96.83 (spontaneous vaginal delivery) Acute O80 Maternal fever during labor Acute O75.2 Gestational hypertension Acute O13.9 Labs Blood Type: A RH: POSITIVE RPR/VDRL/Syphilis Nonreactive Rubella status Immune HbSAg Negative Date Done: 11/23/18 Chlamydia Negative Gonorrhea Negative HIV/AIDS Non-Reactive Group B Strep: Negative A/P: 34yo PPD#2 s/p doing well. -Rh positive, Rubella immune -Routine care -/pumping - in special care nursery -Plan for d/c today.
[2019-07-05 10:00] VITALS: BP 127/77; PULSE 64; RESP 16; TEMP 36.4
[2019-07-05 14:00] VITALS: BP 127/82; PULSE 88; RESP 18; TEMP 36.5
[2019-07-05] MEDS: Prenatal Vits Tablet 1 TABLET PO (14:19)
[2019-07-05] MEDS: Senna/Docusate Sodium 1 Tablet PO (14:33)
--- NOTE | 2019-07-06 16:00 | CASEMGMT ---
Social Work Labor and Delivery Reason for intervention: first time mom and baby admitted to the [facility]? Date of Intervention:?07.06.2019 Time of Intervention:?154 Informant: Medical records, patient/mother of baby (MOB) Molly Anderson, and father of baby (FOB) Tobi Anderson. ? History MOB is G3, P0 to 1 after delivering baby boy Mynor. ?MOB had history of one miscarriage and one blighted ovum prior to this . ?? care started at 13 weeks this and regular thereafter. ??Baby born on 07.03.2017, weighing 7 pounds 6 ounces at . ?Apgars 4-7-8 at 1-5-10 minutes of life respectively. Baby transferred into the [facility] at [place] for issues related to hypoglycemia and respiratory distress. MOB and FOB are for the last 2 years, together for a total of 9 years. ?No indicates of abuse or neglect, and upon admission MOB denied history of abuse. 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 ?MOB denies any history of depression or anxiety. ?Some anxiety situationally related to history of loss and some grief issues related to MOB's mother passing 5 years ago and not being present to meet this baby Mynor. ?No reports or concern of substance use issues. MOB drinks alcohols socially but not during . ?MOB is a former smoker. ?? ? Impression Met with MOB and FOB together in MOB's courtesy room at [facility] as MOB was disharged as a patient on 07.05.2019. ?Educated MOB and FOB that as this telegraphic typewriter operator chief is the assigned social work for the labor and delivery unit, for continuity of care of families on the [facility] also provides social work to the [facility]. ?Educated parents to this dual role. ??MOB and FOB both cooperative, pleasant, engaged in conversation. ?FOB presents as supportive of MOB and involved with baby care. MOB mood and affect appropriate and congruent to content discussed. Became teary eyed when topic of her mother's passing mentioned. ??MOB reports to feel a connection to the baby, to have needed supplies to care for the baby, and to have adequate support from family and friends. ?FOB will be home from work for the remainder of the week and then has an extra week of work to take off as needed to help out. ?MOB and FOB listened attentively to discussion on depression and anxiety, risk factors for this and importance of letting others know if symptoms arise. ?Parents accepting of resource packet for such. ?MOB and FOB deny need for any other service and decline referral to [facility] but understand can self refer down the road if desired. ? ? Plan MOB has been discharged. No further social work needs from [facility] perspective but social work will remain available as needed via the [facility] unit. mood and anxiety packet given to MOB for home going. ? SERENA Sutton
--- NOTE | 2019-07-08 07:27 | PCM.DC.SUM ---
Discharge Date and Diagnosis Date of Admission: 07/02/19 Date of Discharge: 07/05/19 Hospital Course and Treatment Operations: None Procedures: None Summary of Care Provided: 34yo admitted to 40 6/7 weeks gestation for scheduled induction of labor. Her blood pressures were noted to be elevated in labor and preeclampsia labs were normal. She had an at 41 wga. Her course was unremarkable and she was discharged to home on day #2. - Physical Exam Vital Signs Temp Pulse Resp BP Pulse Ox 97.7 F L 88 18 127/82 H 100 07/05/19 14:00 07/05/19 14:00 07/05/19 14:00 07/05/19 14:00 07/04/19 20:00 Oxygen Delivery Method Room Air Weight: 97.1 kg Body Mass Index (BMI) 37.9 Discharge Diet: No Restrictions Discharge Activity: Return to Normal Activity, May Shower, May Take a Tub Bath May resume sexual activity in: 6 weeks Home Medications: Medications to take at Discharge Vits [Prenatabs FA ] 1 tab PO DAILY 07/02/19 Ibuprofen [Motrin] 600 mg PO Q8H PRN #30 tab 07/04/19 Following Prescrptions Were Given to Patient: Ibuprofen [Motrin] 600 mg PO Q8H PRN #30 tab PRN Reason: Pain Score 1-10/10 Transmission Status: Received by [id number] Primary Care Physician: Care Physician,No Primary [Primary Care Provider] - Please Follow Up With: Murali Quintanilla MD - BP check Please Follow Up With: Murali Quintanilla MD - visit When: 6 weeks Medical Necessity - Tobacco Use Smoking Status: Former smoker Meaningful Use Info Meaningful Use Diagnoses (Choose all that apply): None applicable
== END 2019-07-05 18:00 | disposition home or self-care (01) | DRG 806 ==
PROVIDERS: Obstetrics & Gynecology; Admitting Provider Obstetrics & Gynecology; Referring Provider Obstetrics & Gynecology; Visit Provider Obstetrics & Gynecology
DX: O75.2 Pyrexia during labor, not elsewhere classified (principal); O41.03X0 Oligohydramnios, third trimester, not applicable or unspecified; Z37.0 Single live birth; O71.4 Obstetric high vaginal laceration alone; O48.0 Post-term pregnancy; Z3A.40 40 weeks gestation of pregnancy; O76 Abnormality in fetal heart rate and rhythm complicating labor and delivery; O77.0 Labor and delivery complicated by meconium in amniotic fluid; O13.4 Gestational [pregnancy-induced] hypertension without significant proteinuria, complicating childbirth; O62.2 Other uterine inertia
CPT/HCPCS: 59025; 59050; 80053; 83615; 84550; 85025; 85027; 86850; 86900; 86901; 99218; J7120; A4216; G0378

== ENCOUNTER → 2020-12-07 15:02 | Outpatient (CLI) | payer OTHER, SELFPAY ==
[2020-12-11 03:06] LABS: Chlamydia By Nucleic Acid AMP Negative (Negative)
[2020-12-11 07:33] LABS: Gonococcus By Nucleic Acid AMP Negative (Negative)
[2020-12-12 20:41] LABS: HPV Reflexed? NOT INDICATED
== END ==
PROVIDERS: Visit Provider Obstetrics & Gynecology
DX: Z12.4 Encounter for screening for malignant neoplasm of cervix (principal); Z11.3 Encounter for screening for infections with a predominantly sexual mode of transmission
CPT/HCPCS: 87491; 87591; 88175; G0145

== ENCOUNTER → 2020-12-25 16:26 | Outpatient (CLI) | payer OTHER, SELFPAY ==
[2020-12-25 17:49] LABS: hCG Titer Quant., Serum 569 mIU/mL (1-3)
== END ==
PROVIDERS: Visit Provider Obstetrics & Gynecology
DX: O03.9 Complete or unspecified spontaneous abortion without complication (principal)
CPT/HCPCS: 36415; 84702

== ENCOUNTER → 2021-05-21 15:15 | Outpatient (CLI) | payer OTHER, SELFPAY ==
[2021-05-21 16:26] LABS: Absolute Lymphocyte Count 2.78 X10^3/uL (0.83-4.51); Absolute Neutrophil Count 5.5 X10^3/uL (2.0-7.7); Basophil# 0.03 X10^3/uL; Basophil% 0.3 % (0-1); Eosinophil# 0.27 X10^3/uL; Eosinophils% 2.9 % (0-5); Hematocrit 37.1 % (37-47); Hemoglobin 12.5 g/dL (12.0-15.0); Lymphocyte # 2.78 X10^3/ul (0.83-4.51); Lymphocyte % 29.4 % (19-41); Mean Corp Hgb Conc 33.7 g/dL (32-36); Mean Corpuscular Hgb 30.3 pg (27.0-32.0); Mean Corpuscular Volume 89.8 fL (81-99); Mean Platelet Vol. 8.1 fl (6.2-12.0); Monocyte# 0.82 X10^3/uL; Monocyte% 8.7 % (0-10); NRBC Flagged by Analyzer 0 % (0-5); Neutrophil # 5.52 X10^3/uL (2.7-7.7); Neutrophil % 58.4 % (47-70); Platelet Count 425 K/mm3 (150-450); RBC Distribution Width CV 12.5 % (11.6-14.6); RBC Distribution Width SD 41.6 fl (35.1-43.9); Red Blood Count 4.13 M/mm3 (4.2-5.4); White Blood Count 9.5 K/mm3 (4.4-11.0)
[2021-05-21 16:32] LABS: Color, Urine Yellow (Yellow); Glucose, Dipstick Normal (Normal); Ketone-Dipstick Negative (Negative); Leukocyte Esterase-Dipstick 25 /ul (Negative); Nitrite-Dipstick Negative (Negative); Occult Blood-Urine Negative /ul (Negative); Protein-Dipstick 15 mg/dl (Negative); Urine Bilirubin Dipstick Negative (Negative); Urine Clarity Clear (Clear); Urine Urobilinogen Normal (Normal); Urine pH 6.5 (5.0 - 8.0)
[2021-05-21 16:54] LABS: Thyroid Stim Hormone (TSH) 0.46 uIU/mL (0.358-3.74)
[2021-05-22 08:47] LABS: HIV - WCH Non-Reactive (Nonreactive); Hepatitis B Surface Antigen Non-Reactive (Nonreactive); Hepatitis C Antibody Non-Reactive (Nonreactive); Rubella IgG Reactive (Nonreactive); Syphilis Antibodies Non-reactive
[2021-05-24 03:07] LABS: Chlamydia By Nucleic Acid AMP Negative (Negative)
[2021-05-24 09:01] LABS: Gonococcus By Nucleic Acid AMP Negative (Negative)
== END ==
PROVIDERS: Visit Provider Obstetrics & Gynecology
DX: Z11.3 Encounter for screening for infections with a predominantly sexual mode of transmission (principal); Z34.81 Encounter for supervision of other normal pregnancy, first trimester
CPT/HCPCS: 36415; 81002; 84443; 85025; 86703; 86762; 86780; 86803; 87086; 87088; 87340; 87491; 87591

== ENCOUNTER → 2021-09-18 15:49 | Outpatient (CLI) | payer OTHER, SELFPAY ==
[2021-09-18 17:09] LABS: Hematocrit 34.5 % (37-47); Hemoglobin 11.4 g/dL (12.0-15.0); Mean Corpuscular Hgb 31.6 pg (27.0-32.0); Mean Corpuscular Volume 95.6 fL (81-99); Mean Platelet Vol. 8.5 fl (6.2-12.0); Platelet Count 448 K/mm3 (150-450); RBC Distribution Width CV 13.2 % (11.6-14.6); RBC Distribution Width SD 46.2 fl (35.1-43.9); Red Blood Count 3.61 M/mm3 (4.2-5.4); White Blood Count 11.4 K/mm3 (4.4-11.0)
[2021-09-18 17:22] LABS: Glucose Challenge Gest 1H 50g 176 mg/dL (70-140)
== END ==
PROVIDERS: Visit Provider Obstetrics & Gynecology
DX: Z34.83 Encounter for supervision of other normal pregnancy, third trimester (principal)
CPT/HCPCS: 36415; 82950; 85027

== ENCOUNTER 2021-11-19 10:46 | Outpatient (CLI) | payer OTHER, SELFPAY | END 2021-11-19 23:59 | disposition home or self-care (01) | LOC: LABSPEC 10:46 | PROVIDERS: Visit Provider Student in an Organized Health Care Education/Training Program | DX: Z36.85 Encounter for antenatal screening for Streptococcus B (principal) | CPT/HCPCS: 87081 ==

== ENCOUNTER 2021-12-10 09:00 | Inpatient (IN) | payer OTHER, SELFPAY ==
[2021-12-10] VITALS (45 sets, daily range): BP systolic 128–176; BP diastolic 64–94; PULSE 73–115; TEMP 36.3–36.9; O2SAT 93–100; BMI 38.5
[2021-12-10] MEDS: 0.9% Saline Lock 10 ML Syringe IV (09:35)
[2021-12-10] MEDS: miSOPROStol 25 MCG TABLET VAGINAL (09:53)
[2021-12-10 09:59] LABS: Absolute Lymphocyte Count 1.81 X10^3/uL (0.83-4.51); Absolute Neutrophil Count 6.1 X10^3/uL (2.0-7.7); Basophil# 0.02 X10^3/uL; Basophil% 0.2 % (0-1); Eosinophil# 0.17 X10^3/uL; Eosinophils% 1.9 % (0-5); Hematocrit 37.7 % (37-47); Hemoglobin 13.3 g/dL (12.0-15.0); Lymphocyte # 1.81 X10^3/ul (0.83-4.51); Lymphocyte % 20.6 % (19-41); Mean Corp Hgb Conc 35.3 g/dL (32-36); Mean Corpuscular Hgb 32.6 pg (27.0-32.0); Mean Corpuscular Volume 92.4 fL (81-99); Mean Platelet Vol. 8.6 fl (6.2-12.0); Monocyte# 0.58 X10^3/uL; Monocyte% 6.6 % (0-10); NRBC Flagged by Analyzer 0 % (0-5); Neutrophil # 6.12 X10^3/uL (2.7-7.7); Neutrophil % 69.9 % (47-70); Platelet Count 313 K/mm3 (150-450); RBC Distribution Width CV 12.6 % (11.6-14.6); RBC Distribution Width SD 41.7 fl (35.1-43.9); Red Blood Count 4.08 M/mm3 (4.2-5.4); White Blood Count 8.8 K/mm3 (4.4-11.0)
[2021-12-10] MEDS: Lactated Ringers 1,000 ML 50 ML IV (10:48)
[2021-12-10] MEDS: Oxytocin 30 units/NS 500 ml 30 UNITS/500 ML IV.SOLN IV (10:59)
[2021-12-10 11:20] LABS: Bedside Glucose 145 mg/dL (74-106)
[2021-12-10 12:25] LABS: Bedside Glucose 86 mg/dL (74-106)
[2021-12-10 15:21] LABS: Bedside Glucose 87 mg/dL (74-106)
[2021-12-10] MEDS: Lactated Ringers 500 ML 999 ML IV (15:39)
[2021-12-10] MEDS: fentaNYL-bupivacaine (epidural) 100 ML BAG EPIDURAL (16:38)
[2021-12-10 17:46] LABS: Bedside Glucose 76 mg/dL (74-106)
--- NOTE | 2021-12-10 18:05 | PCM.HP.BLA ---
History and Physical Date of Admission: 12/10/21 HPI: 36-year-old G5, P1 at 39/2 weeks, JOSE 12/15/2021 by LMP, admitted for induction of labor for gestational diabetes. Denies regular contractions, leaking fluid, vaginal bleeding. Reports movement. Denies headache, vision changes, chest pain or shortness of breath, nausea or vomiting, diarrhea constipation, fevers or chills. 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 Breast reduction in 2010 2. Suction D&C 2017 Medications: vitamin Allergies: No known drug allergies Family history: Noncontributory Social history: Denies tobacco, alcohol, drug use Review of system: Negative otherwise stated as above Physical exam Temp 97.9 ?F BP 134/78, pulse 96, O2 sat 99% on room air General no acute distress, comfortable in bed HEENT: PERRLA, normocephalic/atraumatic Cardiac: Regular rate and rhythm Lungs: Clear to auscultation bilaterally Abdomen: Soft, nontender, gravid Extremities: Minimal edema Neurologic: Cranial nerves II through XII grossly intact, no focal deficits Musculoskeletal: Strength 5 out of 5 throughout all extremities Cervical exam: 3 cm, AROM clear fluid approximately 11:30 AM today heart rate: 135/mod sheryl/+accel/no decel [place]: q3-4 panel: Group beta strep negative on 11/19 Hepatitis B/hepatitis C negative/negative HIV negative Syphilis nonreactive Rubella immune A positive Assessment/plan:36-year-old G5, P1 at 39/2 weeks, JOSE 12/15/2021 by LMP, admitted for induction of labor for gestational diabetes and polyhydramnios. complicated by: Recurrent loss, GDM A1, polyhydramnios ?Admit to labor and delivery ?Routine orders ?Monitor blood glucose per routine -Pitocin induction -Group beta strep negative
[2021-12-10 20:25] LABS: Bedside Glucose 79 mg/dL (74-106)
[2021-12-10] MEDS: Lactated Ringers 1,000 ML 200 ML IV (20:42)
[2021-12-10] MEDS: Oxytocin 30 units/NS 500 ml 30 UNITS/500 ML IV.SOLN 334 UNITS IV (21:10)
[2021-12-10] MEDS: miSOPROStol 200 MCG Tablet 1000 MCG RC (21:23)
--- NOTE | 2021-12-10 22:12 | EX.PCM.OBRPT ---
Maternal Data Information Final JOSE: 12/15/21 Vaginal Delivery Operative Information Date of Procedure: 12/10/21 Pre-Operative Diagnosis: Herrera intrauterine , GDMA1, polyhydramnios Post-Operative Diagnosis: Herrera intrauterine , GDMA1, polyhydramnios Surgery / Procedure Performed: Spontaneous Vaginal Delivery Type of Anesthesia: Epidural Estimated Blood Loss: 500cc Findings Description of Procedure: Spontaneous vaginal delivery of viable infant male. No nuchal cord. Baby to mom. Cord clamped and cut. Spontaneous delivery of placenta. First-degree laceration repaired in the usual fashion, hemostatic. 1000 mcg Cytotec placed per rectum. Infant A Gender: Male (1 minute): 8 (5 minute): 9
[2021-12-10 22:36] LABS: Bedside Glucose 76 mg/dL (74-106)
[2021-12-10 22:36] LABS: Bedside Glucose 100 mg/dL (74-106)
[2021-12-11] VITALS (13 sets, daily range): BP systolic 125–182; BP diastolic 65–96; PULSE 67–88; RESP 16–18; TEMP 36.4–37.1; O2SAT 96–99
[2021-12-11] MEDS: Acetaminophen 500 MG Tablet 1000 MG PO ×2 (06:51→21:09)
[2021-12-11] MEDS: Senna/Docusate Sodium 1 Tablet PO (06:51)
--- NOTE | 2021-12-11 07:35 | NURSING ---
bedside report given to Denisse Tyson RN who is assuming care of pt at this time
[2021-12-11 08:02] LABS: Bedside Glucose 97 mg/dL (74-106)
--- NOTE | 2021-12-11 08:53 | PCM.PN.OB ---
Subjective Subjective No issues overnight. Feels well. Denies heavy lochia or painfulness. Reports mild headache, improved with caffeine. Denies vision changes, shortness of breath or chest pain. Objective Data Objective Data Vital Signs: Vital Signs Temp Pulse Resp BP Pulse Ox 98.3 F 79 16 158/88 H 98 12/11/21 07:36 12/11/21 07:39 12/11/21 07:36 12/11/21 07:39 12/11/21 07:36 Oxygen Delivery Method Room Air Weight: 98.5 kg Body Mass Index (BMI) 38.5 Intake & Output: Intake and Output for Last 24 Hours 12/09/21 12/10/21 12/11/21 23:59 23:59 23:59 Intake Total 2126.03 / 2126.03 Output Total 400 / 400 1050 / 1050 Balance 1726.03 / 1726.03 -1050 / -1050 Lab / Micro Data Result Diagrams: 12/10/21 09:35 Labs: Laboratory Results - last 24 hr 12/10/21 09:35: WBC 8.8, RBC 4.08 L, Hgb 13.3, Hct 37.7, MCV 92.4, MCH 32.6 H, MCHC 35.3, RDW Std Deviation 41.7, RDW Coeff of Ty 12.6, Plt Count 313, MPV 8.6, Immature Gran % (Auto) 0.800, Neut % (Auto) 69.9, Lymph % (Auto) 20.6, Mcdowell % (Auto) 6.6, Eos % (Auto) 1.9, Baso % (Auto) 0.2, Absolute Neuts (auto) 6.1, Absolute Lymphs (auto) 1.81, Nucleated RBC % 0 12/10/21 09:35: Blood Type A POSITIVE, Antibody Screen NEGATIVE 12/10/21 10:57: POC Glucose 145 H 12/10/21 12:03: POC Glucose 86 12/10/21 14:56: POC Glucose 87 12/10/21 17:39: POC Glucose 76 12/10/21 20:12: POC Glucose 79 12/10/21 21:40: POC Glucose 76 12/10/21 22:05: POC Glucose 100 12/11/21 06:28: POC Glucose 97 Micro: Microbiology 12/10/21 09:50 Nasal Secretion SARS-CoV-2 Antigen (Rapid) - Final Physical Exam Const alert, oriented x3 and no apparent distress Resp normal respiratory effort and normal air movement Cardio regular rate, regular rhythm, S1 normal heart sound and S2 normal heart sound Narrative: lochia scant Uterus Palpation: uterus fundus firm and other OB fundus nontender Extremity no calf tenderness Neuro oriented x3 Assessment & Plan (1) (spontaneous vaginal delivery): PLAN: Routine care A positive (2) Gestational diabetes mellitus: QUALIFIERS: Gestational diabetes mellitus control: diet-controlled Trimester: third trimester Qualified Code(s): O24.410 - Gestational diabetes mellitus in , diet controlled PLAN: glucose levels appropriate No further monitoring Plan outpatient glucose screening in 6-12 weeks (3) Hypertension, condition or complication: PLAN: Preeclamptic labs today
[2021-12-11 09:28] LABS: Hematocrit 36.1 % (37-47); Hemoglobin 12.9 g/dL (12.0-15.0); Mean Corp Hgb Conc 35.7 g/dL (32-36); Mean Corpuscular Hgb 32.7 pg (27.0-32.0); Mean Corpuscular Volume 91.6 fL (81-99); Mean Platelet Vol. 8.5 fl (6.2-12.0); Platelet Count 301 K/mm3 (150-450); RBC Distribution Width CV 12.5 % (11.6-14.6); RBC Distribution Width SD 41.1 fl (35.1-43.9); Red Blood Count 3.94 M/mm3 (4.2-5.4); White Blood Count 12.6 K/mm3 (4.4-11.0)
[2021-12-11 09:41] LABS: ALB/GLOB Ratio 0.6 RATIO (0.9-2.4); AST(SGOT) 17 U/L (15-37); Alanine Aminotransfer ALT/SGPT 15 U/L (13-56); Albumin, Serum 2.3 g/dL (3.2-5.0); Alkaline Phosphatase 84 U/L (45-117); Anion Gap 6 (5-15); BUN 6 mg/dL (7-18); BUN/Creat Ratio 9.8 RATIO (10-20); Calcium,Total 9.4 mg/dL (8.5-10.1); Chloride 107 mmol/L (98-107); Creatinine, Serum 0.62 mg/dL (0.55-1.02); EST Glomerular Filtration Rate 118 mL/min (>60); Est Glom Filt Rate - Afr Amer 142 mL/min (>60); Estimated Creatinine Clearance 105.76 ml/min; Globulin 3.9 g/dL (2.2-4.2); Glucose 127 mg/dL (74-106); LDH 199 U/L (84-246); Protein, Total 6.2 g/dL (6.4-8.2); Sodium Level 137 mmol/L (136-145)
[2021-12-11] MEDS: Ibuprofen 600 MG Tablet PO ×2 (12:49→18:16)
[2021-12-11] MEDS: Lisinopril 2.5 MG Tablet PO (18:12)
[2021-12-12 02:26] VITALS: BP 130/66; PULSE 72; RESP 18; TEMP 36.5
--- NOTE | 2021-12-12 06:39 | NURSING ---
pt's am fasting bgt per her personal monitor: 76
[2021-12-12] MEDS: Acetaminophen 500 MG Tablet 1000 MG PO (07:46)
[2021-12-12 07:47] VITALS: BP 142/86; PULSE 80; RESP 15; TEMP 36.6
[2021-12-12 07:48] VITALS: BP 142/86; PULSE 80
--- NOTE | 2021-12-12 09:29 | PN.OBGYN_ITS ---
Subjective Subjective Patient without complaints. Denies any PIH symptoms. Blood pressures mildly elevated but controlled with low-dose lisinopril. Wants to go home. Objective Data Objective Data Vital Signs: Vital Signs Temp Pulse Resp BP Pulse Ox 97.9 F 80 15 142/86 H 99 12/12/21 07:47 12/12/21 07:48 12/12/21 07:47 12/12/21 07:48 12/11/21 15:38 Oxygen Delivery Method Room Air Weight: 217 lb 2.485 oz Body Mass Index (BMI) 38.5 Intake & Output: Intake and Output for Last 24 Hours 12/10/21 12/11/21 12/12/21 23:59 23:59 23:59 Intake Total 2126.03 / 2126.03 Output Total 400 / 400 1050 / 1050 Balance 1726.03 / 1726.03 -1050 / -1050 Lab / Micro Data Result Diagrams: 12/11/21 09:15 12/11/21 09:15 Labs: Laboratory Results - last 24 hr 12/11/21 09:15: Sodium 137, Potassium 4.0, Chloride 107, Carbon Dioxide 24.0, Anion Gap 6, BUN 6 L, Creatinine 0.62, Estim Creat Clear Calc 105.76, Est GFR (MDRD) Af Amer 142, Est GFR (MDRD) Non-Af 118, BUN/Creatinine Ratio 9.8 L, Glucose 127 H, Calcium 9.4, Total Bilirubin 0.20, AST 17, ALT 15, Alkaline Phosphatase 84, Lactate Dehydrogenase 199, Total Protein 6.2 L, Albumin 2.3 L, Globulin 3.9, Albumin/Globulin Ratio 0.6 L Micro: Microbiology 12/10/21 09:50 Nasal Secretion SARS-CoV-2 Antigen (Rapid) - Final Assessment & Plan (1) (spontaneous vaginal delivery): PLAN: Doing well day #1 status post routine spontaneous vaginal deliveries. Will discharge to home on low-dose lisinopril. Routine instruct ions given. Patient to follow-up next week for blood pressure check and in 6 weeks. Monitor his blood pressures at home.
--- NOTE | 2021-12-12 09:30 | PCM.DC ---
Discharge Instructions Diet Discharge Diet: No restrictions Activity Discharge Activity: May Drive (In 1 to 2 days if not taking narcotic pain medication), May Shower and May Take a Tub Bath May resume sexual activity in: 4-6 weeks Additional Activity Instructions:: Nothing in the vagina for 4-6 weeks. You may return to work/school in 6 weeks. Dressing / Incision Call your doctor if you observe: Fever of 101 or Higher, Inability to urinate, Inability to have a bowel movement and Using more than 1 pad per hour Follow Up Care Please Follow Up With: Murali Quintanlila MD When: Call [phone] to make an appointment with your doctor in 6 weeks. Test Results: Test results from this visit will be discussed in further detail at your follow-up appointment, if applicable. Discharge Plan Admission Admit Date/Time: 12/10/21 09:00 Primary Reason for Your Visit: Vaginal Delivery Attending Provider: Danita Pena Primary Care Provider: Care Physician,Pau Primary Discharge Orders/Prescriptions Prescriptions: New lisinopril 2.5 mg tablet 2.5 mg PO DAILY Qty: 30 RF: 1 Continued vit,[id number] 1 TABLET tablet 1 tab PO DAILY RF: 0 ibuprofen 600 MG tablet 600 mg PO Q8H PRN (Reason: Pain Score 1-10/10) Qty: 30 RF: 0 Referrals / Follow Up: Care Physician,No Primary [Primary Care Provider] - Disposition Disposition (needs filled in before D/C Order can be placed): Home, Self Care
[2021-12-12] MEDS: Lisinopril 2.5 MG Tablet PO (09:58)
--- NOTE | 2021-12-17 13:48 | NURSING ---
follow up call complete, patient reports she is doing well, denies any symptoms of problems, reports baby is feeding well and peeing and pooping often, mother states she was satisfied with her care and had a great experience.
== END 2021-12-12 11:03 | disposition home or self-care (01) | DRG 807 ==
PROVIDERS: Obstetrics & Gynecology; Admitting Provider Student in an Organized Health Care Education/Training Program; Referring Provider Student in an Organized Health Care Education/Training Program; Visit Provider Student in an Organized Health Care Education/Training Program
DX: O24.420 Gestational diabetes mellitus in childbirth, diet controlled (principal); Z37.0 Single live birth; O16.4 Unspecified maternal hypertension, complicating childbirth; O40.3XX0 Polyhydramnios, third trimester, not applicable or unspecified; O26.23 Pregnancy care for patient with recurrent pregnancy loss, third trimester; O70.0 First degree perineal laceration during delivery; Z3A.39 39 weeks gestation of pregnancy
CPT/HCPCS: 59025; 59050; 80053; 82962; 83615; 85025; 85027; 86850; 86900; 86901; 87426; 99218; J7120; A4216; G0378

== ENCOUNTER → 2022-06-18 | Outpatient (CLI) | payer OTHER, SELFPAY ==
[2022-06-18 11:58] LABS: Absolute Lymphocyte Count 2.86 X10^3/uL (0.83-4.51); Absolute Neutrophil Count 4.4 X10^3/uL (2.0-7.7); Basophil# 0.03 X10^3/uL; Basophil% 0.4 % (0-1); Eosinophil# 0.35 X10^3/uL; Eosinophils% 4.3 % (0-5); Hematocrit 41.1 % (37-47); Hemoglobin 13.5 g/dL (12.0-15.0); Lymphocyte # 2.86 X10^3/ul (0.83-4.51); Mean Corp Hgb Conc 32.8 g/dL (32-36); Mean Corpuscular Hgb 30.4 pg (27.0-32.0); Mean Corpuscular Volume 92.6 fL (81-99); Monocyte# 0.56 X10^3/uL; Monocyte% 6.8 % (0-10); NRBC Flagged by Analyzer 0 % (0-5); Neutrophil # 4.35 X10^3/uL (2.7-7.7); Neutrophil % 53.1 % (47-70); Platelet Count 483 K/mm3 (150-450); RBC Distribution Width CV 12.8 % (11.6-14.6); RBC Distribution Width SD 43.4 fl (35.1-43.9); Red Blood Count 4.44 M/mm3 (4.2-5.4); White Blood Count 8.2 K/mm3 (4.4-11.0)
[2022-06-18 12:44] LABS: Vitamin B12 680 pg/mL (211-911)
[2022-06-18 12:45] LABS: ALB/GLOB Ratio 0.9 RATIO (0.9-2.4); AST(SGOT) 17 U/L (15-37); Alanine Aminotransfer ALT/SGPT 29 U/L (13-56); Albumin, Serum 3.7 g/dL (3.2-5.0); Alkaline Phosphatase 78 U/L (45-117); Anion Gap 7 (5-15); BUN 9 mg/dL (7-18); Calcium,Total 9.2 mg/dL (8.5-10.1); Chloride 106 mmol/L (98-107); Cholesterol 239 mg/dL (200); Creatinine, Serum 0.69 mg/dL (0.55-1.02); EST Glomerular Filtration Rate 102 mL/min (>60); Est Glom Filt Rate - Afr Amer 124 mL/min (>60); Globulin 4.3 g/dL (2.2-4.2); Glucose 122 mg/dL (74-106); High Density Lipoprotein 48 mg/dL; Sodium Level 138 mmol/L (136-145); Thyroid Stim Hormone (TSH) 1.08 uIU/mL (0.358-3.74); Triglycerides 217 mg/dL; Very Low Density Lipoprotein 43 mg/dL (5-40)
== END | disposition home or self-care (01) ==
LOC: BIMLAB 10:57
PROVIDERS: Visit Provider Nurse Practitioner Family
DX: Z00.00 Encounter for general adult medical examination without abnormal findings (principal); E66.9 Obesity, unspecified; E56.9 Vitamin deficiency, unspecified
CPT/HCPCS: 36415; 80053; 80061; 82306; 82607; 84443; 85025

== ENCOUNTER 2023-09-10 08:18 | Day surgery (SDC) | payer BC, SELFPAY ==
[2023-09-10 08:47] LABS: Internal QC Validated? YES +Cl - CLEAR BKGD; Record Kit Lot#,Urine Preg HCG0000667200
[2023-09-10 08:50] LABS: Pregnancy, Urine Negative Negative
[2023-09-10 08:52] VITALS: BP 112/72; PULSE 88; RESP 18; TEMP 37; O2SAT 100; BMI 28.0
[2023-09-10] MEDS: Lactated Ringers 1,000 ML 15 ML IV (08:58)
--- NOTE | 2023-09-10 09:00 | HP.PCM_ITS ---
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 Maurilio Farmer MD) Encounter for preventative adult health care examination Gestational diabetes mellitus History of gastroesophageal reflux (GERD) Hypertension, condition or complication (spontaneous vaginal delivery) Vitamin deficiency Surgical History History of D&C Hx of breast reduction, elective Family History Mother , age 48 CVA (cerebral vascular accident) Diabetes typeGrandfather , age 57 Myocardial infarction Diabetes Social History Smoking Status: Former smoker alcohol intake: never substance use type: does not use what type of physical activity do you participate in: none HPI HPI HPI: Patient reports for the last year she has been having dysphagia. She says that during her last had more heartburn than normal and she still has a lot of GERD. She tried famotidine which did not help. She reports that when she starts a meal her first few bites she chokes on but once they go down the rest of the meal will be okay. She also reports no problems with liquids or medications. ROS General General: Yes weight change (loss); No appetite, fatigue, colon cancer, breast cancer or weakness HEENT HEENT: Yes difficulty swallowing; No eye injury, eye surgery, swollen glands or hoarseness Endo Endocrine: No thyroid disease, diabetes mellitus, thyroid cancer, Hair loss, heat intolerance or cold intolerance Skin Skin: No rash or changing moles Breast Breast: No left breast lump, right breast lump, nipple discharge, breast pain, abnormal mammogram, abnormal US or breast enlargement Musc Musculoskeletal: No back problems, arthritis, rheumatoid arthritis, gout or joint pain Cardio Cardiovascular: No murmur, pacemaker, heart disease, atrial fibrillation, high blood pressure, heart attack, heart stent, palpitations, shortness of breat with exertion or chest pain Psych Psychiatric: Yes anxiety; No depression or hearing voices Resp Respiratory: No shortness of breath, No sleep apnea, No cough, No COPD, No asthma, No emphysema and No wheezing Gastro Gastrointestinal: No abdominal pain, Yes nausea or vomiting, No diarrhea, No constipation, No blood in stool, Yes acid reflux, No hemorrhoids, No ulcers, No gallbladder problem and No black,tarry stools Wilian Hematologic: No blood thinners, No blood disorders, No bleeding, No anemia and No blood clots Neuro Neurologic: No system reviewed and no additional complaints, except as documented, No as per HPI, No abnormal gait, No abnormal hearing, No abnormal movements, No abnormal speech, No behavioral changes, No burning sensations, No confusion, No convulsions, No disequilibrium, No dizziness, No localized weakness, No frequent falls, No headache(s), No lack of coordination, No loss of vision, No memory loss, No numbness, No other visual disturbances, No radicular pain, No restless legs, No sensory deficit, No syncope, No tingling, No tremor(s), No weakness and No other Exam Const General: cooperative Orientation: alert and oriented x3 HENMT Head: normal to inspection Neck Neck: normal visual inspection and full ROM Chest Chest palpation & inspection: normal inspection of the chest Resp Effort & Inspection: normal respiratory effort Auscultation: clear to auscultation bilaterally Cardio Rate: regular rate Rhythm: regular rhythm GI Inspection: non-distended Palpation: soft and nontender Skin General: no rashes or lesions noted Neuro General: patient alert and patient oriented x3 Extrem General: full ROM Psych Appearance: grossly normal Mental Status: mental status grossly normal Assessment and Plan Assessment and Plan (1) Dysphagia: Status: Acute Qualifiers: Dysphagia type: esophageal phase Qualified Code(s): R13.19 - Other dysphagia Plan: The patient is having dysphagia but it is odd as it sounds like it resolves after her first few bites of food. Unsure if this is something to do with mechanical issue versus structural issue. I will perform an EGD with possible dilation to evaluate for hiatal hernia or stricture and I did discuss possible balloon dilation of stricture if it is present. I also discussed the increased risk of bleeding or perforation. Patient will try a PPI in the meantime. I will also order manometry to see if it is a functional issue. Maurilio Farmer MD Pager: [facility] [address] [place] [address], [address] [place] [address] Office: I have examined the patient and the H&P has been reviewed. There are no clinical changes since date of exam.
[2023-09-10 09:27] VITALS: BP 112/72; BP 89/51; PULSE 89; RESP 18; TEMP 36.3; O2SAT 99
--- NOTE | 2023-09-10 09:27 | OP.CCLET_ITS ---
09/10/2023 Ladarius Benitez NP [address] [place] [address] [place] [address] Re : Upper GI endoscopy procedure for Molly Anderson Dear Mr. Benitez This procedure was performed on Sunday, September 10, 2023. My impressions and recommendations are as follows: Impressions : - Normal esophagus. - Normal stomach. - Normal examined duodenum. - Benign-appearing esophageal stenosis. - No specimens collected. Recommendations : - Discharge patient to home. - Resume previous diet. - Continue present medications. My findings are described in the full procedure note, which is enclosed. If I can be of further assistance, please feel free to contact me at Doctor phone number(s): , Work: . Sincerely, Maurilio Farmer MD 09/10/2023 9:26:50 AM This report has been signed electronically.
--- NOTE | 2023-09-10 09:27 | OP.EGD_ITS ---
Patient Name: Molly Anderson Procedure Date: 09/10/2023 9:06 AM Date of : 1985 Age: 38 Procedure: Upper GI endoscopy Indications: Dysphagia Providers: Maurilio Farmer MD Medicines: Monitored Anesthesia Care Patient Profile: This is a 38 year old female. Refer to note in patient chart for documentation of history and physical. Complications: No immediate complications. Estimated blood loss: Minimal. Procedure: Pre-Anesthesia Assessment: - Prior to the procedure, a History and Physical was performed, and patient medications and allergies were reviewed. The patient's tolerance of previous anesthesia was also reviewed. The risks and benefits of the procedure and the sedation options and risks were discussed with the patient. All questions were answered, and informed consent was obtained. Prior Anticoagulants: The patient has taken no anticoagulant or antiplatelet agents. After reviewing the risks and benefits, the patient was deemed in satisfactory condition to undergo the procedure. After obtaining informed consent, the endoscope was passed under direct vision. Throughout the procedure, the patient's blood pressure, pulse, and oxygen saturations were monitored continuously. The gastroscope was introduced through the mouth, and advanced to the third part of duodenum. The upper GI endoscopy was accomplished without difficulty. The patient tolerated the procedure well. Scope In: 9:15:36 AM Scope Out: 9:22:15 AM Total Procedure Duration Time 0 hours 6 minutes 39 seconds Findings: The esophagus was normal. The stomach was normal. The examined duodenum was normal. One benign-appearing, intrinsic mild stenosis was found at the gastroesophageal junction. The stenosis was traversed. Impression: - Normal esophagus. - Normal stomach. - Normal examined duodenum. - Benign-appearing esophageal stenosis. - No specimens collected. Recommendation: - Discharge patient to home. - Resume previous diet. - Continue present medications. Procedure Code(s): --- Professional --- 30131, Esophagogastroduodenoscopy, flexible, transoral; diagnostic, including collection of specimen(s) by brushing or washing, when performed (separate procedure) Diagnosis Code(s): --- Professional --- K22.2, Esophageal obstruction R13.10, Dysphagia, unspecified CPT copyright 2021 [employer]. All rights reserved. The codes documented in this report are preliminary and upon housekeeper head review may be revised to meet current compliance requirements. Maurilio Farmer MD 09/10/2023 9:26:50 AM This report has been signed electronically. Number of Addenda: 0 Note Initiated On: 09/10/2023 9:06 AM
[2023-09-10 09:30] VITALS: BP 112/72; BP 95/61; PULSE 95; RESP 18; O2SAT 96
[2023-09-10 09:34] VITALS: BP 102/64; BP 112/72; PULSE 97; RESP 12; O2SAT 98
[2023-09-10 09:39] VITALS: BP 103/68; BP 112/72; PULSE 88; RESP 18; TEMP 36.9; O2SAT 98
[2023-09-10 10:05] VITALS: BP 112/72
== END 2023-09-10 10:10 | disposition home or self-care (01) ==
LOC: EN 08:18 → AC 08:19
PROVIDERS: Anesthesiology; PCP Nurse Practitioner Family; Referring Provider Surgery; Visit Provider Surgery
PROC: 0DJ08ZZ Inspection of Upper Intestinal Tract, Via Natural or Artificial Opening Endoscopic (ICD-10-PCS; CPT 43235; principal; 2023-09-10 09:25)
DX: K22.2 Esophageal obstruction (principal); R13.19 Other dysphagia; E56.9 Vitamin deficiency, unspecified; E88.810 Metabolic syndrome; F41.9 Anxiety disorder, unspecified; Z68.28 Body mass index [BMI] 28.0-28.9, adult; Z79.899 Other long term (current) drug therapy; Z87.891 Personal history of nicotine dependence
CPT/HCPCS: 43235; 81025; J7120; J2405

== ENCOUNTER → 2025-02-10 | Outpatient (CLI) | payer BC, SELFPAY ==
[2025-02-10 12:17] LABS: Absolute Lymphocyte Count 2.24 X10^3/uL (0.83-4.51); Absolute Neutrophil Count 2.7 X10^3/uL (2.0-7.7); Basophil# 0.03 X10^3/uL; Basophil% 0.5 % (0-1); Eosinophil# 0.19 X10^3/uL; Eosinophils% 3.4 % (0-5); Hematocrit 37.2 % (37-47); Hemoglobin 12.5 g/dL (12.0-15.0); Lymphocyte # 2.24 X10^3/ul (0.83-4.51); Lymphocyte % 39.9 % (19-41); Mean Corp Hgb Conc 33.6 g/dL (32-36); Mean Corpuscular Hgb 31.4 pg (27.0-32.0); Mean Corpuscular Volume 93.5 fL (81-99); Mean Platelet Vol. 7.8 fl (6.2-12.0); Monocyte# 0.45 X10^3/uL; NRBC Flagged by Analyzer 0 % (0-5); Platelet Count 360 K/mm3 (150-450); RBC Distribution Width CV 12.3 % (11.6-14.6); RBC Distribution Width SD 42.2 fl (35.1-43.9); Red Blood Count 3.98 M/mm3 (4.2-5.4); White Blood Count 5.6 K/mm3 (4.4-11.0)
[2025-02-10 13:05] LABS: Hemoglobin A1c 4.9 % (<=5.6)
[2025-02-10 13:20] LABS: ALB/GLOB Ratio 1.5 RATIO (0.9-2.4); AST(SGOT) 20 U/L (<=31); Alanine Aminotransfer ALT/SGPT 16 U/L (<=34); Albumin, Serum 4.4 g/dL (3.5-5.0); Alkaline Phosphatase 59 U/L (35-104); Anion Gap 11 (5-15); BUN 12 mg/dL (4-19); BUN/Creat Ratio 18.7 RATIO (10-20); Calcium,Total 9.4 mg/dL (7.6-11.0); Carbon Dioxide 21.2 mmol/L (21.0-32.0); Chloride 105 mmol/L (98-108); Cholesterol 176 mg/dL (<=200); Creatinine, Serum 0.63 mg/dL (0.70-1.20); EST Glomerular Filtration Rate 116 (>60); Glucose 83 mg/dL (70-99); High Density Lipoprotein 56 mg/dL; Low Density Lipoprotein Calc. 109 mg/dL; Protein, Total 7.4 g/dL (5.9-8.4); Sodium Level 137 mmol/L (133-145); Triglycerides 54 mg/dL; Very Low Density Lipoprotein 11 mg/dL (5-40); Vitamin D,25 Hydroxy 33.6 ng/mL (30-100); cholesterol:hdl ratio screen 3.13
== END | disposition home or self-care (01) ==
LOC: VSLAB 10:31
PROVIDERS: PCP Nurse Practitioner Family; Visit Provider Nurse Practitioner Family
DX: Z00.00 Encounter for general adult medical examination without abnormal findings (principal); R73.03 Prediabetes; E78.5 Hyperlipidemia, unspecified; E66.9 Obesity, unspecified; E55.9 Vitamin D deficiency, unspecified
CPT/HCPCS: 36415; 80053; 80061; 82306; 83036; 84439; 84443; 85025